=== PATIENT | male | born 1985 | race Caucasian/White ===

== ENCOUNTER 2020-10-28 06:24 | Inpatient (IN) | payer OTHER ==
[~2020-10-28] VITALS: Ht 167.6 cm; Wt 68.0 kg
[2020-10-28 07:44] LABS: HEMOGLOBIN 15.5 gm/dl (14.0-17.5); RED BLOOD COUNT 5.24 M/UL (4.20-5.50); WHITE BLOOD COUNT 25.3 K/UL (4.5-11.0)
[2020-10-28] MEDS ORDERED: NOVOLOG FL100 UNIT/1 SC (11:02)
[2020-10-28] MEDS ORDERED: TRESIBA FL100 UNIT/1 SC (11:35)
[2020-10-29 07:09] LABS: HEMOGLOBIN 14.8 gm/dl (14.0-17.5); RED BLOOD COUNT 4.93 M/UL (4.20-5.50); WHITE BLOOD COUNT 21.4 K/UL (4.5-11.0)
[2020-10-29 08:06] LABS: BUN/CREATININE RATIO 32 (0-10)
[2020-10-30 05:29] LABS: HEMOGLOBIN 14.8 gm/dl (14.0-17.5); RED BLOOD COUNT 4.97 M/UL (4.20-5.50)
[2020-10-30 06:01] LABS: BUN/CREATININE RATIO 22 (0-10)
[2020-10-30 14:50] LABS: BUN/CREATININE RATIO 19 (0-10)
[2020-10-30 19:04] LABS: BUN/CREATININE RATIO 20 (0-10)
[2020-10-30 21:46] LABS: BUN/CREATININE RATIO 19 (0-10)
[2020-10-31 03:42] LABS: BUN/CREATININE RATIO 19 (0-10)
[2020-10-31 05:56] LABS: HEMOGLOBIN 14.4 gm/dl (14.0-17.5); RED BLOOD COUNT 4.78 M/UL (4.20-5.50)
[2020-10-31 06:16] LABS: BUN/CREATININE RATIO 18 (0-10)
[2020-10-31 10:46] LABS: BUN/CREATININE RATIO 18 (0-10)
[2020-10-31 13:56] LABS: BUN/CREATININE RATIO 21 (0-10)
[2020-11-01 07:25] LABS: BUN/CREATININE RATIO 23 (0-10)
[2020-11-01] MEDS ORDERED: LEVOFLOXACIN500 MG PO (10:05)
[2020-11-01] MEDS ORDERED: METRONIDAZOLE250 MG PO (10:05)
--- NOTE | 2020-11-01 12:49 | NUR ---
PT GIVEN DISCHARGE INSTRUCTIONS AND IV'S DC'D
== END 2020-11-01 13:37 | disposition home or self-care (01) | DRG 638 ==
LOC: ER1 06:24 → M/S 09:16 → CDU 09:16 → CCU 15:14 → PROG CARE 10-29 11:11 → M/S 10-30 12:48
PROVIDERS: Emergency Medicine; Internal Medicine; Physician Assistant; Physician Assistant Medical; ADMIT Internal Medicine
DX: E10.10 Type 1 diabetes mellitus with ketoacidosis without coma (principal); R65.10 Systemic inflammatory response syndrome (SIRS) of non-infectious origin without acute organ dysfunction; N17.9 Acute kidney failure, unspecified; E87.6 Hypokalemia; Z20.822 Contact with and (suspected) exposure to COVID-19; E86.1 Hypovolemia; K52.9 Noninfective gastroenteritis and colitis, unspecified; Z79.4 Long term (current) use of insulin; Z82.49 Family history of ischemic heart disease and other diseases of the circulatory system
CPT/HCPCS: 36415; 71045; 74150; 80048; 80053; 80202; 82009; 82550; 82553; 82800; 82962; 83036; 83605; 83735; 84132; 84484; 85025; 85027; 87040; 93005; 94640; 94664; 94760; 96374; 99285; C9113; J0610; J0692; J1650; J2405; J3370; J3480; J7030; J7070; U0002